=== PATIENT | female | born 1985 | race Two or more races ===

== ENCOUNTER 2022-08-13 14:55 | Emergency (ER) | payer OTHER ==
[~2022-08-13] VITALS: Ht 167.6 cm; Wt 77.0 kg
[2022-08-13 14:57] VITALS: O2SAT 99
[2022-08-13] MEDS ORDERED: FAMOTIDINE 20MG/2ML VIAL IV STA (14:57)
[2022-08-13] MEDS ORDERED: METHYLPREDNISOLONE SOD SUCC 125 MG/2 ML VIAL IV ONE (15:00)
[2022-08-13] MEDS ORDERED: SODIUM CHLORIDE 0.9% 1,000 ML IV ONE (15:00)
[2022-08-13 16:51] LABS: CLARITY URINE CLEAR (CLEAR); COLOR URINE YELLOW (YELLOW); KETONES URINE NEGATIVE (NEGATIVE); LEUKOCYTE ESTERASE URINE NEGATIVE (NEGATIVE); NITRITE URINE NEGATIVE (NEGATIVE); OCCULT BLOOD URINE NEGATIVE (NEGATIVE); PH URINE 6.5 (4.5-8.0); PROTEIN URINE NEGATIVE (NEGATIVE); SPECIFIC GRAVITY URINE 1.007 (1.005-1.030); UROBILINOGEN URINE 0.2 E.U./dL (0.2-1.0)
[2022-08-13] MEDS ORDERED: LORAZEPAM 0.5MG TABLET PO ONE (19:30)
[2022-08-13] MEDS ORDERED: NITR-87 MT (20:38)
[2022-08-13] MEDS ORDERED: P50 MT (20:38)
[2022-08-13] MEDS ORDERED: FAMO-135 MT (20:38)
[2022-08-13] MEDS ORDERED: DIPH25CA83 MT (20:38)
[2022-08-13 21:12] VITALS: BP 128/69; PULSE 89; RESP 20; TEMP 98.1
== END 2022-08-13 21:14 | disposition home or self-care (01) ==
LOC: ER 15:03
DX: T78.40XA Allergy, unspecified, initial encounter (principal); N39.0 Urinary tract infection, site not specified; X58.XXXA Exposure to other specified factors, initial encounter
CPT/HCPCS: 81003; 81025; 87077; 87086; 93005; 96361; 96374; 96375; 99284; J2930; J3490; Z7610